=== PATIENT | female | born 2000 | race African-American/Black ===

== ENCOUNTER 2021-12-20 09:13 | Outpatient (CLI) | payer OTHER, SELFPAY ==
--- NOTE | ~2021-12-20 | US_ITS ---
EXAMINATION: US thyroid EXAM DATE: 12/20/2021 09:42 INDICATION: E04.1 - Nontoxic single thyroid nodule TECHNIQUE: Multiple grayscale and Doppler images of the thyroid were obtained (by a technologist who performed the scan) and subsequently reviewed. Individual nodules and recommendations may be reporte d in accordance with TI-RADS system as designated by the 2017 ACR White Paper TI-RADS committee. The re is no prior study for comparison. FINDINGS: The right there are lobe measures 5.0 x 2.6 x 1.3 cm, the left measuring 4.3 x 1.8 x 1.5 cm. There is mildly diffusely heterogeneous thyroid echogenicity. The isthmus measures 3 mm in thickness. Dimensi ons are mildly enlarged. Several thyroid nodules 5 mm or less in size, not clinically significant or requiring further follow-up. IMPRESSION: Mild thyromegaly. Small nodules not likely clinically significant. Return to clinical f ollow-up and if additional palpable abnormality develops a repeat ultrasound can be obtained. Reviewed, dictated and finalized at location B. IMPRESSION: Mild thyromegaly. Small nodules not likely clinically significant. Return to clinical follow-up and if additional palpable abnormality develops a repeat ultrasound can be obtained.
== END 2021-12-20 09:14 | disposition home or self-care (01) ==
PROVIDERS: PCP Family Medicine; Visit Provider Internal Medicine Endocrinology, Diabetes & Metabolism
DX: E04.1 Nontoxic single thyroid nodule (principal)
CPT/HCPCS: 76536

== ENCOUNTER 2022-11-24 10:15 | Outpatient (CLI) | payer OTHER, SELFPAY ==
[2022-11-24 17:43] LABS: Free T4 Free Thyroxine 1.13 ng/mL (0.78-2.19)
[2022-11-27 05:25] LABS: Triiodothyronine T3 Free 3.6 pg/mL (2.3-4.2)
== END 2022-11-24 10:16 | disposition home or self-care (01) ==
LOC: ANHWCLAB 10:16
PROVIDERS: PCP Family Medicine; Visit Provider Internal Medicine Endocrinology, Diabetes & Metabolism
DX: E04.1 Nontoxic single thyroid nodule (principal)
CPT/HCPCS: 36415; 84439; 84443; 84481